=== PATIENT | male | born 1960 | race Caucasian/White ===

== ENCOUNTER 2016-12-19 15:51 | Emergency (ER) | payer SELFPAY ==
[~2016-12-19] VITALS: Ht 177.8 cm; Wt 98.8 kg
[~2016-12-19 15:51] MED LIST: ATIVAN1 MG; ATIVAN1 MG PO; COUMADIN6 MG PO; LORAZEPAM1 MG; SERTRALINE HCL50 MG; TOPROL XL6.25 MG PO; ZOLOFT50 MG PO
[2016-12-19 15:54] VITALS: BP 153/83
== END 2016-12-19 17:55 | disposition home or self-care (01) ==
LOC: EXP 15:51 → EME 15:51 → EXP 17:55
DX: R79.1 Abnormal coagulation profile (principal); Z95.2 Presence of prosthetic heart valve; Z79.01 Long term (current) use of anticoagulants
CPT/HCPCS: 99281; 99284

== ENCOUNTER → 2017-06-11 | Outpatient (CLI) | payer OTHER | END | disposition home or self-care (01) | LOC: RAD 09:30 | DX: I71.2 Thoracic aortic aneurysm, without rupture (principal); Z95.2 Presence of prosthetic heart valve | CPT/HCPCS: 71275 ==